=== PATIENT | female | born 1980 | race Caucasian/White ===

== ENCOUNTER → 2023-01-10 | Outpatient (CLI) | payer MEDICAID, SELFPAY ==
[2023-01-10 17:54] LABS: Mucous, Urine 0 SEEN /hpf (<or=2+)
[2023-01-10 18:00] LABS: Color, Urine Yellow (Yellow); Glucose, Dipstick Normal (Normal); Ketone-Dipstick Negative (Negative); Leukocyte Esterase-Dipstick 500 /ul (Negative); Nitrite-Dipstick Negative (Negative); Occult Blood-Urine 250 /ul (Negative); Protein-Dipstick 15 mg/dl (Negative); Urine Bilirubin Dipstick Negative (Negative); Urine Clarity Sl. Cloudy (Clear); Urine Urobilinogen Normal (Normal)
[2023-01-10 18:22] LABS: Squamous Epithelial Cells - UA 10-25 SEEN /hpf (5-10)
[2023-01-10 18:23] LABS: Red Blood Cells-Urine 0-5 SEEN /hpf (0-5); White Blood Cells 10-25 SEEN /hpf (0-5)
[2023-01-10 18:24] LABS: Bacteria 2+ /hpf (None Seen)
== END | disposition home or self-care (01) ==
PROVIDERS: PCP Family Medicine; Visit Provider Physician Assistant
DX: R35.0 Frequency of micturition (principal); R82.90 Unspecified abnormal findings in urine
CPT/HCPCS: 81001; 87086; 87088

== ENCOUNTER → 2024-06-24 | Outpatient (CLI) | payer MEDICAID, SELFPAY ==
--- NOTE | 2024-06-24 16:30 | MRI_ITS ---
EXAM: MR RIGHT LOWER EXTREMITY WITHOUT INTRAVENOUS CONTRAST, KNEE CLINICAL INDICATION: pain, medial joint line tenderness TECHNIQUE: Multiplanar and multisequence MR images of the right knee without intravenous contrast. COMPARISON: 05/12/24 FINDINGS: BONES/JOINTS: Edema anterior to the tibial tubercle. EXTENSOR MECHANISM: Unremarkable. MEDIAL MENISCUS: Unremarkable. LATERAL MENISCUS: Unremarkable. MEDIAL CAPSULE/SUPPORTING STRUCTURES: Unremarkable. Intact. LATERAL CAPSULE/SUPPORTING STRUCTURES: Unremarkable. Lateral collateral ligamentous complex, inclusive of the popliteal tendon, are intact. ANTERIOR CRUCIATE LIGAMENT: Unremarkable. Intact. POSTERIOR CRUCIATE LIGAMENT: Unremarkable. Intact. MUSCLES: Unremarkable. CARTILAGE: Full-thickness chondral defect without subchondral marrow signal alteration at the middle weightbearing aspect of the medial femoral condyle. FLUID: Moderate joint effusion with synovitis. OTHER SOFT TISSUES: Unremarkable. No popliteal cyst. MRI/Lower Ext Joint Only (Routine) IMPRESSION: 1. Full-thickness chondral defect without subchondral marrow signal alteration at the middle weightbearing aspect of the medial femoral condyle. 2. Moderate joint effusion with synovitis. Electronically Signed: Yovani Cook MD at 4:29 EDT ,
== END | disposition home or self-care (01) ==
LOC: MRI 16:18
PROVIDERS: PCP Family Medicine; Referring Provider Orthopaedic Surgery Sports Medicine; Visit Provider Orthopaedic Surgery Sports Medicine
DX: M25.561 Pain in right knee (principal)
CPT/HCPCS: 73721

== ENCOUNTER 2024-07-22 14:49 | Outpatient (RCR) | payer MEDICAID, SELFPAY ==
--- NOTE | 2024-07-22 15:37 | HP.PTEVAL ---
Patient's Visit Information Visit Information Visit Information: IRVIN NEVILLE is a 44 year old F referred to Physical Therapy by Dr. Eddi Springer MD with a diagnosis of R knee pain. Date of Evaluation: 07/22/24 Physical Therapist: BOYD Mueller Visit Plan Frequency: 2x /Week Duration: 2 Months Plan: 2X/ week for 8 weeks for R hip, knee, and core strengthening, gait training, functional activities such as balance and steps with HEP HEP: SLR and S/L hip abd Subjective Subjective: Pt has torn cartilage below her knee cap. She is going to have to have surgery and wants to see if PT will help. She is on blood thinners due to a blood clot and hoping to be cleared for surgery. They did an MRI and gave her a brace. The brace helps especially when she can not walk. She is on Zulma Doris. Stairs: no issue on stairs. Her knee hurts the worse at night and it throbs. Sometimes walking hurts if she walks too much. She is fine getting up out of a chair. Pain R knee pain: Pain Intensity (Out of 10): 5 Objective Objective: Gait: Walks with decrease stance time on the R LE B knee AROM 0- 115 degrees Palpation: Slight pain to palpation medial joint line (just below) Pt is able to walk on heels and toes and increase R knee pain when walking on R toes. No visible swelling LE MMT: R hip flex 4/5 and L 4/5 R hip abd 4-/5 and L 4/5 R knee ext 4/5 and L 4+/5 R knee flex 4/5 and L 4-/5 Stairs: up and down recip with 1 hand rail with weakness present up the step but mostly weakness present descending the steps Balance/Special Test Scores Lower Extremity Functional Score: 37 Goals Goal 1:: I HEP Goal Time Frame: 6-8 Weeks Goal 2:: Be able to go up and down the steps with smooth recip pattern (especially eccentric) Goal Time Frame: 6-8 Weeks Goal 3:: Be able to walk longer distances before R knee starts to increase in pain Rehabilitation Potential Rehabilitation Potential: Good Anticipated Interventions Patient/Client Instruction: Educate patient on: Condition and Plan of Care For the Purpose of:: To decrease pain, To decrease swelling/inflammation, To increase ROM, To improve nutrient delivery to tissue, To improve muscle performance and motor function, To improve ability to perform ADL's, To increase tolerance to activity/condition/position, To decrease level of supervision to perform tasks, To improve ability of physical actions for home/community/work/leisure, To improve gait and locomotor functions, To improve health of tissue, To decrease soft tissue restriction and To increase flexibility/ROM Therapeutic Exercise to Include: Strength training, Postural training, Flexibilty training, Gait and locomotor training, Neuromotor development, Active ROM and Dynamic Lumbar Stabilization For the Purpose of:: To decrease pain, To increase ROM, To improve nutrient delivery to tissue, To increase oxygenation perfusion, To improve muscle performance and motor function, To improve ability to perform ADL's, To increase tolerance to activity/condition/position, To improve performance and independence with ADL's, To decrease level of supervision to perform tasks, To improve ability of physical actions for home/community/work/leisure, To improve gait and locomotor functions, To improve health of tissue and To increase flexibility/ROM Functional Training to Include: Gait training For the Purpose of:: To improve gait and locomotor functions Text: Thank you for the opportunity to evaluate your patient. For Medicare and Medicare HMO plans, please review the plan of care and approve it. It will need to be FAXED BACK to us at [phone] for Medicare purposes. For Medicare only, by signing this I certify the plan of care. Please let me know if there are questions or concerns regarding this plan of care. Physician Signature: Date:
--- NOTE | 2024-09-22 08:13 | HP.PT.NRP ---
Patient Information Patient Information: IRVIN NEVILLE was seen in my office for initial evaluation on 07/22/24. The following Plan of Care was established for this patient: POC Established Initial Frequency: 2x /Week Initial Duration: 2 Months Anticipated Interventions Patient/Client Instruction: Educate patient on: Condition and Plan of Care For the Purpose of:: To decrease pain, To decrease swelling/inflammation, To increase ROM, To improve nutrient delivery to tissue, To improve muscle performance and motor function, To improve ability to perform ADL's, To increase tolerance to activity/condition/position, To decrease level of supervision to perform tasks, To improve ability of physical actions for home/community/work/leisure, To improve gait and locomotor functions, To improve health of tissue, To decrease soft tissue restriction and To increase flexibility/ROM Therapeutic Exercise to Include: Strength training, Postural training, Flexibilty training, Gait and locomotor training, Neuromotor development, Active ROM and Dynamic Lumbar Stabilization For the Purpose of:: To decrease pain, To increase ROM, To improve nutrient delivery to tissue, To increase oxygenation perfusion, To improve muscle performance and motor function, To improve ability to perform ADL's, To increase tolerance to activity/condition/position, To improve performance and independence with ADL's, To decrease level of supervision to perform tasks, To improve ability of physical actions for home/community/work/leisure, To improve gait and locomotor functions, To improve health of tissue and To increase flexibility/ROM Functional Training to Include: Gait training For the Purpose of:: To improve gait and locomotor functions Last Seen Last Seen: This patient was last seen in our office 07/22/24. Pertinent comments regarding their Physical therapy will appear below: [facility] At this point I will be discontinuing this patient from physical therapy. I would be happy to see this patient again in the future if found appropriate by the physician. Thank you! Dinorah Bhatti, MPT Balance/Gait/Functional tests Balance/Special Test Scores Lower Extremity Functional Score: 37
== END 2024-07-22 19:00 | disposition home or self-care (01) ==
LOC: PT 14:49
PROVIDERS: PCP Family Medicine; Referring Provider Orthopaedic Surgery Sports Medicine; Visit Provider Orthopaedic Surgery Sports Medicine
DX: M25.561 Pain in right knee (principal)
CPT/HCPCS: 97161

== ENCOUNTER → 2024-12-24 | Outpatient (CLI) | payer MEDICAID, SELFPAY | END | disposition home or self-care (01) | LOC: LABSPEC 15:12 | PROVIDERS: PCP Family Medicine; Visit Provider Physician Assistant Surgical | DX: R82.90 Unspecified abnormal findings in urine (principal) | CPT/HCPCS: 87086; 87088 ==

== ENCOUNTER → 2025-06-01 | Outpatient (CLI) | payer MEDICAID, SELFPAY | END | disposition home or self-care (01) | LOC: LABSPEC 12:27 | PROVIDERS: PCP Family Medicine; Visit Provider Physician Assistant | DX: R30.0 Dysuria (principal) | CPT/HCPCS: 87086; 87088 ==